=== PATIENT | female | born 2000 ===

== ENCOUNTER 2021-11-02 14:06 | Emergency (ER) | payer OTHER ==
[~2021-11-02] VITALS: Ht 170.2 cm; Wt 92.7 kg
[2021-11-02] MEDS ORDERED: FOLI1TAB11 PO (14:52)
[2021-11-02] MEDS ORDERED: GNP28TAB2 PO (14:52)
== END 2021-11-02 15:21 | disposition admitted as inpatient to this hospital (09) ==
LOC: M ED 14:06
DX: Z53.29 Procedure and treatment not carried out because of patient's decision for other reasons (principal)

== ENCOUNTER 2021-11-02 14:33 | Outpatient (CLI) | payer OTHER ==
[~2021-11-02] VITALS: Ht 170.2 cm; Wt 92.7 kg
[2021-11-02] MEDS ORDERED: GNP28TAB2 PO (14:52)
[2021-11-02] MEDS ORDERED: FOLI1TAB11 PO (14:52)
[2021-11-02 15:00] VITALS: BP 129/82
[2021-11-02 16:25] VITALS: BP 120/77
== END 2021-11-02 16:38 | disposition home or self-care (01) ==
LOC: M LDO 14:33
PROVIDERS: ATTEND Obstetrics & Gynecology
DX: O26.893 Other specified pregnancy related conditions, third trimester (principal); R10.31 Right lower quadrant pain; Z3A.30 30 weeks gestation of pregnancy; O99.613 Diseases of the digestive system complicating pregnancy, third trimester; K59.00 Constipation, unspecified
CPT/HCPCS: 59025; G0378; G0463